=== PATIENT | female | born 1995 | race Caucasian/White ===

== ENCOUNTER 2020-05-27 16:54 | Inpatient (IN) ==
[2020-05-27 17:52] LABS: ABS Eosinophils 0.1 10^3/ul (0-0.6); ABS Lymphocytes 1.6 10^3/ul (1.0-4.8); ABS Monocytes 0.9 10^3/ul (0-0.8); ABS Neutrophils 9.2 10^3/ul (1.5-7.7); Eosinophil % 1.2 %; Hematocrit 32 % (35-47); Hemoglobin 10.7 g/dL (12.0-16.0); Lymphocyte % 13.4 %; Mean Corpuscular HGB Conc 33 g/dL (31-36); Mean Corpuscular Hemoglobin 28 pg (27-31); Mean Corpuscular Volume 85 fL (80-97); Mean Platelet Volume 10.8 fL (7.4-10.4); Nucleated Red Blood Cells % 0.2; Platelet Count 138 10^3/uL (150-450); Red Blood Count 3.82 10^6 /uL (3.70-4.87); Red Cell Distribution Width 17 % (10-15); White Blood Count 11.8 10^3/uL (3.5-10.8)
[2020-05-27 18:07] LABS: Albumin 2.9 g/dL (3.2-5.2); BUN/Creatinine Ratio 20.4 (8-20); EGFR African American 165.1 (>60); EGFR Non-African American 136.5 (>60); Globulin 2.8 g/dL (2-4); Total Bilirubin 0.3 mg/dL (0.2-1.0); Total Protein 5.7 g/dL (6.4-8.9); Uric Acid 7.3 mg/dL (2.3-6.6)
[2020-05-27 20:06] LABS: Activated Partial Thrombo Time 21.6 seconds (26.0-38.0); Fibrinogen 336.6 mg/dL (110.8-404.3); INR 0.9 (0.82-1.09)
[2020-05-28] MEDS ORDERED: MAGNESIUM SULF IVPB ONE (01:17)
[2020-05-28] MEDS ORDERED: Oxytocin in LR 20 UNITS/1,000 ML BAG IVPB SCH (02:00)
[2020-05-28] MEDS ORDERED: Lactated Ringers 1000 ml BAG 1,000 ML IV SCH ×2 (02:00→15:00)
[2020-05-28] MEDS: Magnesium Sulfate OB PREMIX 40 GM/1,000 ML BAG IVPB SCH ×2 (02:14→19:58)
[2020-05-28 03:18] LABS: Urine Appearance Clear; Urine Bilirubin Negative (Negative); Urine Blood 1+ (Negative); Urine Color Yellow; Urine Glucose Negative (Negative); Urine Ketones Negative (Negative); Urine Nitrite Negative (Negative); Urine Protein 2+(100 mg/dL) (Negative); Urine Specific Gravity 1.011 (1.010-1.030); Urine Urobilinogen Negative (Negative)
[2020-05-28 03:28] LABS: ABS Eosinophils 0.1 10^3/ul (0-0.6); ABS Lymphocytes 1.8 10^3/ul (1.0-4.8); ABS Monocytes 0.8 10^3/ul (0-0.8); ABS Neutrophils 9.5 10^3/ul (1.5-7.7); Eosinophil % 0.8 %; Hematocrit 33 % (35-47); Hemoglobin 10.8 g/dL (12.0-16.0); Mean Corpuscular HGB Conc 33 g/dL (31-36); Mean Corpuscular Hemoglobin 28 pg (27-31); Mean Corpuscular Volume 85 fL (80-97); Mean Platelet Volume 11.5 fL (7.4-10.4); Nucleated Red Blood Cells % 0.3; Platelet Count 136 10^3/uL (150-450); Red Cell Distribution Width 17 % (10-15); White Blood Count 12.2 10^3/uL (3.5-10.8)
[2020-05-28 03:42] LABS: Urine Benzodiazepine Screen None Detected (None Detect); Urine Cannabinoids Screen None Detected (None Detect); Urine Opiates Screen None Detected (None Detect)
[2020-05-28 04:09] LABS: Urine Bacteria Absent (Absent); Urine Red Blood Cell 3+(>10/hpf) (Absent); Urine Squamous Epithelial Cell Present (Absent); Urine White Blood Cell Trace(0-5/hpf) (Absent)
[2020-05-28 07:43] LABS: Hematocrit 34 % (35-47); Hemoglobin 11.3 g/dL (12.0-16.0); Mean Corpuscular HGB Conc 33 g/dL (31-36); Mean Corpuscular Hemoglobin 29 pg (27-31); Mean Corpuscular Volume 86 fL (80-97); Mean Platelet Volume 10.9 fL (7.4-10.4); Platelet Count 129 10^3/uL (150-450); Red Blood Count 3.92 10^6 /uL (3.70-4.87); Red Cell Distribution Width 17 % (10-15); White Blood Count 11.7 10^3/uL (3.5-10.8)
[2020-05-28 08:02] LABS: BUN/Creatinine Ratio 17.5 (8-20); EGFR African American 155.1 (>60); EGFR Non-African American 128.2 (>60); Potassium 4.1 mmol/L (3.5-5.0); Total Bilirubin 0.3 mg/dL (0.2-1.0)
[2020-05-28 08:35] LABS: ABS Eosinophils 0.1 10^3/ul (0-0.6); ABS Lymphocytes 1.7 10^3/ul (1.0-4.8); ABS Monocytes 0.7 10^3/ul (0-0.8); ABS Neutrophils 9.1 10^3/ul (1.5-7.7); Lymphocyte % 14.7 %; Nucleated Red Blood Cells % 0.1
[2020-05-28 08:37] LABS: Polychromasia 1+
[2020-05-28 13:16] LABS: ABS Eosinophils 0.1 10^3/ul (0-0.6); ABS Lymphocytes 1.5 10^3/ul (1.0-4.8); ABS Monocytes 0.6 10^3/ul (0-0.8); ABS Neutrophils 9.3 10^3/ul (1.5-7.7); Eosinophil % 0.9 %; Hematocrit 34 % (35-47); Hemoglobin 11.3 g/dL (12.0-16.0); Lymphocyte % 12.7 %; Mean Corpuscular HGB Conc 33 g/dL (31-36); Mean Corpuscular Hemoglobin 28 pg (27-31); Mean Corpuscular Volume 85 fL (80-97); Mean Platelet Volume 10.9 fL (7.4-10.4); Nucleated Red Blood Cells % 0.1; Platelet Count 135 10^3/uL (150-450); Red Cell Distribution Width 18 % (10-15); White Blood Count 11.5 10^3/uL (3.5-10.8)
[2020-05-28] MEDS ORDERED: fentaNYL 100 mcg/2 ml 50 MCG/ML VIAL ONE (13:30)
[2020-05-28] MEDS ORDERED: OBEPIDURAL 250 ML EPIDURAL ONE (13:30)
[2020-05-28 13:34] LABS: Albumin 2.9 g/dL (3.2-5.2); BUN/Creatinine Ratio 15.4 (8-20); Calcium 7.4 mg/dL (8.6-10.3); EGFR African American 172.5 (>60); EGFR Non-African American 142.5 (>60); Globulin 2.9 g/dL (2-4); Potassium 3.9 mmol/L (3.5-5.0); Total Bilirubin 0.4 mg/dL (0.2-1.0); Total Protein 5.8 g/dL (6.4-8.9)
[2020-05-28] MEDS ORDERED: Lidocaine 1% MPF 5 ML VIAL ONE (13:53)
[2020-05-28] MEDS ORDERED: Sodium Citrate/Citric Acid LIQ 15 ML UDC PO PRN (14:32)
[2020-05-28] MEDS ORDERED: Phenylephrine 40 mcg/mL 10mL (400mcg) SYRINGE IV PUSH PRN (14:32)
[2020-05-28] MEDS ORDERED: EPHEDrine (Pressors) 50 MG/ML VIAL IV PUSH PRN (14:32)
[2020-05-28] MEDS ORDERED: Lactated Ringers 1000 ml BAG 1,000 ML IV ONE (14:32)
[2020-05-28] MEDS ORDERED: OBEPIDURAL 250 ML EPIDURAL SCH (15:00)
[2020-05-28 22:50] LABS: EGFR Non-African American 120.8 (>60); Potassium 4.3 mmol/L (3.5-5.0)
[2020-05-28 22:51] LABS: Albumin 3.3 g/dL (3.2-5.2); Calcium 7.8 mg/dL (8.6-10.3); EGFR African American 146.2 (>60); Globulin 3.3 g/dL (2-4); Total Bilirubin 0.5 mg/dL (0.2-1.0); Total Protein 6.6 g/dL (6.4-8.9)
[2020-05-28 23:09] LABS: ABS Basophils 0.1 10^3/ul (0-0.2); ABS Eosinophils 0.1 10^3/ul (0-0.6); ABS Lymphocytes 1.3 10^3/ul (1.0-4.8); ABS Monocytes 0.7 10^3/ul (0-0.8); ABS Neutrophils 14.2 10^3/ul (1.5-7.7); Eosinophil % 0.4 %; Hematocrit 38 % (35-47); Hemoglobin 12.6 g/dL (12.0-16.0); Lymphocyte % 8.1 %; Mean Corpuscular HGB Conc 33 g/dL (31-36); Mean Corpuscular Hemoglobin 29 pg (27-31); Mean Corpuscular Volume 86 fL (80-97); Nucleated Red Blood Cells % 0.1; Red Blood Count 4.41 10^6 /uL (3.70-4.87); White Blood Count 16.4 10^3/uL (3.5-10.8)
[2020-05-28 23:35] LABS: Mean Platelet Volume 10.3 fL (7.4-10.4); Platelet Count 118 10^3/uL (150-450)
[2020-05-28 23:36] LABS: Red Cell Distribution Width 17 % (10-15)
[2020-05-29] MEDS ORDERED: Witch Hazel PAD JAR TOPICAL PRN (01:17)
[2020-05-29] MEDS ORDERED: Dibucaine 1% OINT 28.35 GM TUBE PR PRN (01:17)
[2020-05-29] MEDS ORDERED: Glycerin ADULT 2.4 gm SUPP PR PRN (01:17)
[2020-05-29] MEDS ORDERED: Oxytocin in LR 20 UNITS/1,000 ML BAG IVPB SCH (02:00)
[2020-05-29] MEDS ORDERED: Lactated Ringers 1000 ml BAG 1,000 ML IV SCH (02:00)
[2020-05-29] MEDS ORDERED: Lidocaine 1% VIAL 10 MG/ML VIAL ONE (03:25)
[2020-05-29 12:19] LABS: Albumin 2.7 g/dL (3.2-5.2); Albumin/Globulin Ratio 0.9 (1-3); BUN/Creatinine Ratio 14.3 (8-20); EGFR African American 138.2 (>60); EGFR Non-African American 114.2 (>60); Globulin 3.1 g/dL (2-4); Potassium 4.3 mmol/L (3.5-5.0); Total Bilirubin 0.3 mg/dL (0.2-1.0); Total Protein 5.8 g/dL (6.4-8.9)
[2020-05-29 14:10] LABS: Hematocrit 37 % (35-47); Hemoglobin 11.9 g/dL (12.0-16.0); Mean Corpuscular HGB Conc 33 g/dL (31-36); Mean Corpuscular Hemoglobin 28 pg (27-31); Mean Corpuscular Volume 85 fL (80-97); Mean Platelet Volume 11.2 fL (7.4-10.4); Platelet Count 154 10^3/uL (150-450); Red Blood Count 4.29 10^6 /uL (3.70-4.87); Red Cell Distribution Width 17 % (10-15); White Blood Count 13.1 10^3/uL (3.5-10.8)
[2020-05-29] MEDS: Magnesium Sulfate OB PREMIX 40 GM/1,000 ML BAG IVPB SCH (16:09)
[2020-05-31 20:15] VITALS: BP 142/86
== END 2020-05-31 21:26 | disposition home or self-care (01) | DRG 807 ==
LOC: MCHOBOUT 16:54 → MCHOB 05-28 01:24
PROVIDERS: ADMIT Obstetrics & Gynecology; ATTEND Obstetrics & Gynecology

== ENCOUNTER 2023-10-20 07:52 | Inpatient (IN) ==
[2023-10-20] MEDS ORDERED: Prochlorperazine 5 mg/ml 2 ml VIAL (10 mg) IV PRN (08:56)
[2023-10-20] MEDS ORDERED: Lidocaine 1% VIAL 10 MG/ML 30 ML VIAL INJ PRN (08:56)
[2023-10-20] MEDS ORDERED: Lactated Ringers 1000 ml BAG 1,000 ML IV ONE ×2 (08:56→19:58)
[2023-10-20] MEDS: Buffered Lidocaine 1% SYRIN 1 ml INTRADERM ONE (09:33)
[2023-10-20 09:36] LABS: ABS Eosinophils 0.1 10^3/uL (0.0-0.5); ABS Lymphocytes 1.5 10^3/uL (1.0-4.8); ABS Monocytes 0.4 10^3/uL (0.0-0.9); ABS Nucleated RBC 0.01 10^3/ul; Eosinophil % 0.9 %; Hematocrit 36.1 % (35-45); Hemoglobin 11.9 g/dL (11.5-14.3); Mean Corpuscular Hemoglobin 27.6 pg (27-33); Mean Corpuscular Volume 83.7 fL (80-97); Mean Platelet Volume 10.9 fL (7.5-11.2); Nucleated Red Blood Cells % 0.1 %/100WBC (0.0-0.8); Platelet Count 175 10^3/uL (150-450); Red Blood Count 4.31 10^6/uL (3.63-4.92); Red Cell Distribution Width 15.6 % (12-17)
[2023-10-20 09:40] LABS: Urine Benzodiazepine Screen None Detected (None Detect); Urine Cannabinoids Screen None Detected (None Detect); Urine Opiates Screen None Detected (None Detect)
[2023-10-20] MEDS ORDERED: Calcium Carb (TUMS) 500 mg CHEW TAB PO PRN (10:16)
[2023-10-20] MEDS ORDERED: Lidocaine 2% JELLY 6 ML Topical TOPICAL ONE (10:16)
[2023-10-20] MEDS ORDERED: Ondansetron 4 mg VIAL 2 MG/ML 2 ml VIAL IV PRN (10:16)
[2023-10-20] MEDS: miSOPROStol 100 mcg TAB PO ONE ×2 (10:37→17:18)
[2023-10-20] MEDS: Lactated Ringers 1000 ml BAG 1,000 ML IV SCH (15:14)
[2023-10-20] MEDS: Oxytocin in LR 20,000 MILLI.UNIT/1,000 ML BAG IV SCH (15:17)
[2023-10-20] MEDS: Famotidine IV 10 MG/ML 2 ml VIAL (20 mg) IV SLOW PU ONE (17:18)
[2023-10-20] MEDS ORDERED: Oxytocin in LR 20,000 MILLI.UNIT/1,000 ML BAG IV SCH ×2 (18:15→23:45)
[2023-10-20] MEDS: Lidocaine 1.5% EPI 1:200,000 30 ML SDV ONE (19:48)
[2023-10-20] MEDS: OBEPIDURAL (200 ML) 200 ML EPIDURAL ONE (19:49)
[2023-10-20] MEDS ORDERED: Phenylephrine 40 mcg/mL 10mL (400mcg) SYRINGE IV PUSH PRN ×2 (19:58)
[2023-10-20] MEDS ORDERED: Lactated Ringers 1000 ml BAG 500 ML IV PRN ×2 (19:58)
[2023-10-20] MEDS ORDERED: Sodium Citrate/Citric Acid LIQ 15 ML UDC PO PRN (19:58)
[2023-10-20] MEDS ORDERED: Lactated Ringers 1000 ml BAG 1,000 ML IV SCH ×3 (20:00→23:45)
[2023-10-20] MEDS ORDERED: OBEPIDURAL (200 ML) 200 ML EPIDURAL SCH (20:00)
[2023-10-20 20:52] LABS: Urine Appearance Clear; Urine Bilirubin Negative (Negative); Urine Blood Trace (Negative); Urine Color Light-Yellow; Urine Glucose Negative (Negative); Urine Ketones 1+ (Negative); Urine Nitrite Negative (Negative); Urine Protein Negative (Negative); Urine Specific Gravity 1.019 (1.002-1.030); Urine Urobilinogen Negative (Negative)
[2023-10-20] MEDS ORDERED: Lidocaine 2% w/ EPI 1:200,000 MPF 20 ML SDV VIAL ONE (21:47)
[2023-10-20] MEDS ORDERED: Glycerin ADULT 2.4 gm SUPP PR PRN (23:43)
[2023-10-21] MEDS: Dibucaine 1% OINT 28.35 GM TUBE PR PRN (00:25)
[2023-10-21] MEDS: Witch Hazel PAD JAR TOPICAL PRN (00:25)
[2023-10-21 06:59] LABS: ABS Basophils 0.1 10^3/uL (0.0-0.1); ABS Lymphocytes 1.2 10^3/uL (1.0-4.8); ABS Monocytes 0.5 10^3/uL (0.0-0.9); ABS Neutrophils 9.7 10^3/uL (1.5-7.6); ABS Nucleated RBC 0.01 10^3/ul; Eosinophil % 0.1 %; Hematocrit 30.1 % (35-45); Hemoglobin 10.1 g/dL (11.5-14.3); Lymphocyte % 10.8 %; Mean Corpuscular Hemoglobin 28.2 pg (27-33); Mean Corpuscular Hgb Conc 33.4 g/dL (31-36); Mean Corpuscular Volume 84.3 fL (80-97); Mean Platelet Volume 11.1 fL (7.5-11.2); Nucleated Red Blood Cells % 0.1 %/100WBC (0.0-0.8); Platelet Count 156 10^3/uL (150-450); Red Blood Count 3.57 10^6/uL (3.63-4.92); White Blood Count 11.5 10^3/uL (3.8-11.8)
[2023-10-22 08:14] VITALS: BP 118/76
== END 2023-10-22 14:30 | disposition home or self-care (01) | DRG 807 ==
LOC: MCHOBOUT 07:52 → MCHOB 08:25
PROVIDERS: ADMIT Advanced Practice Midwife; ATTEND Obstetrics & Gynecology